=== PATIENT | female | born 1980 | race Caucasian/White ===

== ENCOUNTER 2019-03-18 16:34 | Emergency (ER) | payer SELFPAY ==
[~2019-03-18] VITALS: Ht 167.6 cm; Wt 68.0 kg
[2019-03-18 16:48] VITALS: BP_SYST 146
--- NOTE | 2019-03-18 17:47 | NUR ---
Patient to ER bed 1 to gown for evaluation. Side rails up. Report given to Nilson DLEGADO.
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
--- NOTE | 2019-03-18 17:53 | NUR ---
ER Dr. Grissom at bedside examining patient.
[2019-03-18 18:04] VITALS: BP_SYST 134
--- NOTE | 2019-03-18 18:04 | NUR ---
Patient given written and verbal discharge instructions and verbalizes understanding. ER MD discussed with patient the results and treatment provided. Patient in stable condition. ID arm band removed. Rx of tramadol given. Patient educated on pain management and to follow up with PMD. Pain Scale 0/10. Opportunity for questions provided and answered. Medication side effect fact sheet provided.
== END 2019-03-18 18:04 | disposition home or self-care (01) ==
LOC: SED 16:34
DX: F07.81 Postconcussional syndrome (principal); R42 Dizziness and giddiness; V49.49XA Driver injured in collision with other motor vehicles in traffic accident, initial encounter; Y93.89 Activity, other specified; Y92.488 Other paved roadways as the place of occurrence of the external cause; Y99.8 Other external cause status
CPT/HCPCS: 70450-TC; 81025; 99284